=== PATIENT | female | born 1955 | race Caucasian/White ===

== ENCOUNTER → 2016-04-29 | Outpatient (CLI) | payer OTHER ==
--- NOTE | 2016-04-29 16:50 | MA ---
Screening Digital Mammogram With iCAD Analysis Clinical Indications: Routine screening. Technique: Standard cephalocaudal and mediolateral oblique projections were obtained. This examinatio n was processed by the iCAD computer-aided detection system. Comparison: March 2015, March 2014, January 2013, December 2012, December 2011, December 2010, 2009, November 2008. Breast Density: Type B; Scattered fibroglandular densities. Findings: CAD was reviewed. There is possible developing focal asymmetry in the upper anterior right breast noted on the oblique view. No suspicious microcalcifications are seen. The left breast is stab le in appearance. Impression: Possible developing right breast asymmetry requires further evaluation, BI-RADS 0. Recommendation: Spot compression assessment of the right breast with ultrasound suggested if the abno rmality persists on diagnostic evaluation. [facility] will send a result letter to the patient.
== END ==
LOC: BMCIMAGING 14:00
DX: Z12.31 Encounter for screening mammogram for malignant neoplasm of breast (principal)
CPT/HCPCS: G0202

== ENCOUNTER → 2016-05-27 | Outpatient (CLI) | payer OTHER | LOC: BMCIMAGING 13:27 | DX: R92.2 Inconclusive mammogram (principal) | CPT/HCPCS: G0206 ==

== ENCOUNTER → 2016-07-08 | Outpatient (CLI) | payer OTHER | LOC: BMCIMAGING 13:37 | PROVIDERS: ATTEND Family Medicine | DX: Z13.820 Encounter for screening for osteoporosis (principal); M85.80 Other specified disorders of bone density and structure, unspecified site ==

== ENCOUNTER → 2017-06-04 | Outpatient (CLI) | payer OTHER | LOC: BMCIMAGING 12:46 | PROVIDERS: ATTEND Family Medicine | DX: Z12.31 Encounter for screening mammogram for malignant neoplasm of breast (principal) ==

== ENCOUNTER → 2018-06-08 | Outpatient (CLI) | payer OTHER | LOC: BMCIMAGING 12:23 | PROVIDERS: ATTEND Family Medicine | DX: Z12.31 Encounter for screening mammogram for malignant neoplasm of breast (principal) ==

== ENCOUNTER → 2018-06-15 | Outpatient (CLI) | payer OTHER | LOC: BMCIMAGING 10:44 | PROVIDERS: ATTEND Family Medicine | DX: R92.8 Other abnormal and inconclusive findings on diagnostic imaging of breast (principal) ==

== ENCOUNTER → 2018-08-10 | Outpatient (CLI) | payer OTHER | LOC: BMCIMAGING 14:12 | PROVIDERS: ATTEND Family Medicine | DX: Z13.820 Encounter for screening for osteoporosis (principal); M85.89 Other specified disorders of bone density and structure, multiple sites ==